=== PATIENT | female | born 1960 | race Caucasian/White ===

== ENCOUNTER → 2018-02-18 | Outpatient (CLI) | payer OTHER ==
[~2018-02-18] MED LIST: CALCIUM 500 +1 EAC5; ESTRACE0.5 MG; FLEXERIL PO; IBUPROFEN 800800 M1 PO; LAMICTAL100 MG PO; MULTI VITAMIN1 EACH PO; SIMVASTATIN5 MG
== END ==
LOC: M.RAD 14:39
DX: Z12.31 Encounter for screening mammogram for malignant neoplasm of breast (principal)